=== PATIENT | female | born 1990 | race Caucasian/White ===

== ENCOUNTER 2018-02-04 11:47 | Inpatient (IN) | payer MEDICAID ==
[2018-02-04] MEDS ORDERED: NIFEdipine 10 MG CAP PO (13:00)
[2018-02-04] MEDS ORDERED: LACTATED RINGER'S 500 ML IV (14:30)
[2018-02-04] MEDS: MAGNESIUM SULFATE 4 GM/100 ML 100 ML IVPB (14:52)
[2018-02-04] MEDS: MAGNESIUM SULFATE 20 GM/500 ML 500 ML IV (14:54)
[2018-02-04] MEDS: BETAMET NA PHOS/AC(6 MG/ML) 5ML INJ IM (14:55)
[2018-02-04] MEDS: LACTATED RINGER'S 1,000 ML IV (14:55)
[2018-02-04 15:45] LABS: ADD MAN DIFF? NO
[2018-02-04 15:48] LABS: BASOPHILS % 0.3 % (0.0-2.0); EOSINOPHILS # 0.2 10^3/ul (0.0-0.5); EOSINOPHILS % 2.3 % (0.0-7.0); HEMATOCRIT 33.6 % (37.0-47.0); HEMOGLOBIN 11.4 g/dl (12.0-16.0); LYMPHOCYTES # 2.1 10^3/ul (0.8-2.9); LYMPHOCYTES % 20.1 % (15.0-51.0); MEAN CORPUSCULAR HEMOGLOBIN 32.7 pg (29.0-33.0); MEAN CORPUSCULAR HGB CONC 33.9 g/dl (32.0-37.0); MEAN CORPUSCULAR VOLUME 96.3 fl (82.0-101.0); MEAN PLATELET VOLUME 10.2 fl (7.4-10.4); MONOCYTE # 0.7 10^3/ul (0.3-0.9); MONOCYTES % 6.7 % (0.0-11.0); NEUTROPHIL # 7.3 10^3/ul (1.6-7.5); NEUTROPHILS % 69.4 % (39.0-77.0); PLATELET COUNT 292 10^3/UL (140-415); RED BLOOD COUNT 3.49 10^6/ul (4.20-5.40); RED CELL DISTRIBUTION WIDTH 13.1 % (11.5-14.5)
[2018-02-04 15:48] LABS: WHITE BLOOD COUNT 10.5 10^3/ul (4.8-10.8)
[2018-02-04 16:09] LABS: ALANINE AMINOTRANSFERASE 26 IU/L (13-69); ALBUMIN 3.8 g/dl (3.3-4.9); ALBUMIN/GLOBULIN RATIO 1.05; ALKALINE PHOSPHATASE 55 IU/L (42-121); ANION GAP 15 (8-16); ASPARTATE AMINO TRANSFERASE 22 IU/L (15-46); BILIRUBIN,INDIRECT 0.4 mg/dl (0-1.1); BILIRUBIN,TOTAL 0.4 mg/dl (0.2-1.3); BLOOD UREA NITROGEN 9 mg/dl (7-20); CALCIUM 9.2 mg/dl (8.4-10.2); CARBON DIOXIDE 25 mmol/L (21-31); CHLORIDE 103 mmol/L (97-110); CREATININE 0.62 mg/dl (0.44-1.00); GLUCOSE 101 mg/dl (70-220); POTASSIUM 3.6 mmol/L (3.5-5.1); SODIUM 139 mmol/L (135-144); TOTAL PROTEIN 7.4 g/dl (6.1-8.1)
[2018-02-04 16:59] LABS: ADD UMIC NO; UR ASCORBIC ACID NEGATIVE (NEGATIVE); UR BILIRUBIN (Dip) NEGATIVE (NEGATIVE); UR BLOOD (Dip) NEGATIVE (NEGATIVE); UR CLARITY CLEAR (CLEAR); UR COLOR STRAW (YELLOW); UR GLUCOSE (Dip) NEGATIVE (NEGATIVE); UR KETONES (Dip) NEGATIVE (NEGATIVE); UR LEUKOCYTE ESTERASE (Dip) NEGATIVE Leu/ul (NEGATIVE); UR NITRITE (Dip) NEGATIVE (NEGATIVE); UR SPECIFIC GRAVITY (Dip) 1.006 (1.003-1.030); UR TOTAL PROTEIN (Dip) NEGATIVE (NEGATIVE); UR UROBILINOGEN (Dip) NEGATIVE (NEGATIVE)
[2018-02-04 17:28] LABS: AMPHETAMINE/METHAMPHETAMINE Negative (NEGATIVE); BARBITURATES Negative (NEGATIVE); BENZODIAZEPINES Negative (NEGATIVE); CANNABINOIDS Negative (NEGATIVE); COCAINE Negative (NEGATIVE); OPIATES Negative (NEGATIVE)
[2018-02-04] MEDS: PROGESTERONE 100 MG CAP PO (21:32)
[2018-02-05] MEDS: MAGNESIUM SULFATE 20 GM/500 ML 500 ML IV ×2 (00:49→10:53)
[2018-02-05] MEDS: LACTATED RINGER'S 1,000 ML IV (03:07)
[2018-02-05 07:47] LABS: MAGNESIUM 5.8 mg/dl (1.7-2.5)
[2018-02-05] MEDS: FERROUS SULFATE (EC) 325 MG TAB PO (09:28)
[2018-02-05] MEDS: PRENATAL VITAMIN PO (09:28)
[2018-02-05] MEDS: DOCUSATE SODIUM 100 MG CAP PO (09:28)
[2018-02-05 11:51] LABS: MAGNESIUM 5.5 mg/dl (1.7-2.5)
[2018-02-05] MEDS: BETAMET NA PHOS/AC(6 MG/ML) 5ML INJ IM (14:44)
[2018-02-05] MEDS: AL HYDROX/MG HYDROX/SIMETH 30 ML CUP PO (14:54)
[2018-02-05] MEDS: NIFEdipine 10 MG CAP PO (17:30)
== END 2018-02-05 17:40 | disposition home or self-care (01) | DRG 782 ==
LOC: OBT 11:47 → PP1 12:08
DX: O26.872 Cervical shortening, second trimester (principal); Z3A.26 26 weeks gestation of pregnancy
CPT/HCPCS: 76816; 76817; 80053; 80307; 81003; 83735; 85025; 87086

== ENCOUNTER 2018-03-16 11:18 | Inpatient (IN) | payer MEDICAID ==
[2018-03-16] MEDS ORDERED: LACTATED RINGER'S 1,000 ML IV (12:00)
[2018-03-16 12:03] LABS: RUPTURE FETAL MEMBRANES NEGATIVE (NEGATIVE)
[2018-03-16] MEDS: LACTATED RINGER'S 1,000 ML IV ×2 (15:07→22:00)
[2018-03-16] MEDS: NIFEdipine 10 MG CAP PO ×2 (17:35→23:50)
[2018-03-16] MEDS ORDERED: NIFEdipine 10 MG CAP PO (18:00)
[2018-03-16] MEDS: PROGESTERONE 100 MG CAP VAG (20:57)
[2018-03-16] MEDS ORDERED: PROGESTERONE 100 MG CAP PO (21:00)
[2018-03-17] MEDS: ACETAMINOPHEN 325 MG TAB PO (01:49)
[2018-03-17] MEDS: LACTATED RINGER'S 1,000 ML IV ×2 (04:38→11:47)
[2018-03-17] MEDS: NIFEdipine 10 MG CAP PO ×3 (05:49→18:05)
[2018-03-17] MEDS: PRENATAL VITAMIN PO (09:20)
[2018-03-17] MEDS: FERROUS SULFATE (EC) 325 MG TAB PO (09:20)
[2018-03-17] MEDS: DOCUSATE SODIUM 100 MG CAP PO (09:21)
== END 2018-03-17 20:50 | disposition home or self-care (01) | DRG 782 ==
LOC: OBT 11:18 → L-D 11:18 → OBT 12:29 → L-D 12:29 → PP1 14:19
PROVIDERS: Obstetrics & Gynecology
DX: O41.03X0 Oligohydramnios, third trimester, not applicable or unspecified (principal); Z3A.32 32 weeks gestation of pregnancy
CPT/HCPCS: 76818; 84112

== ENCOUNTER 2018-04-18 09:06 | Outpatient (CLI) | payer MEDICAID | END 2018-04-18 12:30 | disposition home or self-care (01) | LOC: OBT 09:06 → L-D 09:06 → OBT 12:30 | DX: O62.9 Abnormality of forces of labor, unspecified (principal); Z3A.37 37 weeks gestation of pregnancy | CPT/HCPCS: 76818 ==

== ENCOUNTER 2018-05-03 04:20 | Inpatient (IN) | payer MEDICAID ==
[2018-05-03] MEDS ORDERED: LACTATED RINGER'S 1,000 ML IV (05:32)
[2018-05-03] MEDS ORDERED: MISOPROSTOL 200 MCG TAB PR ×2 (06:00→07:30)
[2018-05-03] MEDS ORDERED: OXYTOCIN 30 UNITS/LR 500 ML IV ×2 (06:00→07:30)
[2018-05-03] MEDS ORDERED: METHYLERGONOVINE 0.2 MG INJ IM ×2 (06:00→07:30)
[2018-05-03] MEDS ORDERED: CARBOPROST 250 MCG INJ IM ×2 (06:00→07:30)
[2018-05-03] MEDS: AMPICILLIN 2 GM/NS (PMX) 100 ML IV (06:09)
[2018-05-03] MEDS: LACTATED RINGER'S 1,000 ML IV* (06:10)
[2018-05-03 06:47] LABS: ADD MAN DIFF? NO
[2018-05-03 06:50] LABS: BASOPHILS % 0.2 % (0.0-2.0); EOSINOPHILS # 0.2 10^3/ul (0.0-0.5); EOSINOPHILS % 1.2 % (0.0-7.0); HEMATOCRIT 33.6 % (37.0-47.0); HEMOGLOBIN 11.1 g/dl (12.0-16.0); LYMPHOCYTES # 3.1 10^3/ul (0.8-2.9); LYMPHOCYTES % 25.7 % (15.0-51.0); MEAN CORPUSCULAR HEMOGLOBIN 30.7 pg (29.0-33.0); MEAN CORPUSCULAR VOLUME 93.1 fl (82.0-101.0); MEAN PLATELET VOLUME 10.1 fl (7.4-10.4); MONOCYTES % 8.3 % (0.0-11.0); NEUTROPHIL # 7.7 10^3/ul (1.6-7.5); NEUTROPHILS % 63.6 % (39.0-77.0); PLATELET COUNT 257 10^3/UL (140-415); RED BLOOD COUNT 3.61 10^6/ul (4.20-5.40); RED CELL DISTRIBUTION WIDTH 13.7 % (11.5-14.5)
[2018-05-03 06:50] LABS: WHITE BLOOD COUNT 12.1 10^3/ul (4.8-10.8)
[2018-05-03] MEDS: OXYTOCIN 30 UNITS/LR 500 ML IV ×3 (06:52→12:14)
[2018-05-03 07:09] LABS: INR 0.93; PROTIME 12.6 Sec (11.9-14.9)
[2018-05-03 07:10] LABS: PARTIAL THROMBOPLASTIN TIME 27.8 Sec (25.0-35.0)
[2018-05-03] MEDS: LIDOCAINE 1% (MPF) 30 ML INJ INJ (07:23)
[2018-05-03] MEDS ORDERED: LACTATED RINGER'S 1,000 ML IV* (07:26)
[2018-05-03] MEDS ORDERED: ONDANSETRON 4 MG INJ IV (07:30)
[2018-05-03] MEDS ORDERED: ACETAMINOPHEN 325 MG TAB PO ×2 (07:30)
[2018-05-03] MEDS: IBUPROFEN 600 MG TAB PO ×3 (07:47→17:58)
[2018-05-03] MEDS ORDERED: AMPICILLIN 1 GM/NS (PMX) 50 ML IV (10:00)
[2018-05-03] MEDS: BENZOCAINE 20% 56 ML SPRAY TOP (11:36)
[2018-05-03] MEDS: LANOLIN 7 GM TUBE TOP (11:36)
[2018-05-03] MEDS: MAGNESIUM HYDROXIDE 30ML CUP PO (11:36)
[2018-05-03] MEDS: DIBUCAINE 1% 30 GM OINT PR (11:36)
[2018-05-03] MEDS: SENNA/DOCUSATE NA (8.6MG/50MG) TAB PO (11:36)
[2018-05-03] MEDS: WITCH HAZEL/GLYCERIN PAD PR (11:37)
[2018-05-03 13:38] LABS: HEPATITIS B SURFACE ANTIGEN NEGATIVE (NEGATIVE)
[2018-05-03 15:04] LABS: RAPID PLASMA REAGIN NONREACTIVE (NR)
[2018-05-04] MEDS: IBUPROFEN 600 MG TAB PO ×2 (05:54→21:51)
[2018-05-04 09:19] LABS: ADD MAN DIFF? NO
[2018-05-04 09:23] LABS: BASOPHILS % 0.2 % (0.0-2.0); EOSINOPHILS # 0.2 10^3/ul (0.0-0.5); EOSINOPHILS % 1.2 % (0.0-7.0); HEMATOCRIT 28.3 % (37.0-47.0); LYMPHOCYTES # 3.2 10^3/ul (0.8-2.9); MEAN CORPUSCULAR HEMOGLOBIN 30.2 pg (29.0-33.0); MEAN CORPUSCULAR HGB CONC 31.8 g/dl (32.0-37.0); MONOCYTE # 0.8 10^3/ul (0.3-0.9); MONOCYTES % 6.1 % (0.0-11.0); NEUTROPHIL # 8.6 10^3/ul (1.6-7.5); NEUTROPHILS % 66.8 % (39.0-77.0); PLATELET COUNT 237 10^3/UL (140-415); RED BLOOD COUNT 2.98 10^6/ul (4.20-5.40); RED CELL DISTRIBUTION WIDTH 14.2 % (11.5-14.5)
[2018-05-04 09:23] LABS: WHITE BLOOD COUNT 12.9 10^3/ul (4.8-10.8)
[2018-05-04] MEDS: SENNA/DOCUSATE NA (8.6MG/50MG) TAB PO (10:02)
[2018-05-05] MEDS: IBUPROFEN 600 MG TAB PO (11:40)
== END 2018-05-05 13:25 | disposition home or self-care (01) | DRG 775 ==
LOC: OBT 04:20 → L-D 05:00 → OBT 05:30 → L-D 05:30 → PP1 09:03
PROVIDERS: Obstetrics & Gynecology
PROC: 10E0XZZ Delivery of Products of Conception, External Approach (ICD-10-PCS; principal; 2018-05-03)
PROC: 0W8NXZZ Division of Female Perineum, External Approach (ICD-10-PCS; 2018-05-03)
DX: O80 Encounter for full-term uncomplicated delivery (principal); Z3A.39 39 weeks gestation of pregnancy; Z37.0 Single live birth
CPT/HCPCS: 85025; 85610; 85730; 86592; 86850; 86900; 86901; 87340